=== PATIENT | female | born 1995 | race Caucasian/White ===

== ENCOUNTER 2018-11-20 08:20 | Emergency (ER) | payer SELFPAY ==
[2018-11-20] MEDS ORDERED: CEFTRIAXONE INJ 250 MG VIAL IM ONE (09:59)
[2018-11-20] MEDS ORDERED: AZITHROMYCIN 250 MG TABLET PO ONE (09:59)
[2018-11-20] MEDS ORDERED: LIDOCAINE 1% INJ-PF (10 MG/ML) 30 ML SDV INJ ONE (09:59)
[2018-11-20 10:03] LABS: APPEARANCE,URINE SLIGHTLY-CLOUDY; BILIRUBIN,URINE NEGATIVE (NEGATIVE); COLOR,URINE YELLOW; GLUCOSE, URINE NEGATIVE (NEGATIVE); KETONES,URINE NEGATIVE (NEGATIVE); LEUKOCYTE ESTERASE,URINE LARGE (NEGATIVE); NITRITE,URINE NEGATIVE (NEGATIVE); PROTEIN,URINE NEGATIVE (NEGATIVE); UROBILINOGEN,URINE NEGATIVE mg/dL (<2.0)
--- NOTE | 2018-11-20 10:03 | ER Document Report ---
HPI - HPI Time Seen by Provider: 11/20/18 09:45 Pain Level: 3 Notes: Patient is a 23-year-old female with no significant past medical history who presents complaining of intermittent spotting and bilateral pelvic pain that is been present for the last 1.5 weeks after her menstrual cycle began 2-2.5 weeks ago. Patient states that this is not normal for her. Patient states that most her pain is associated to cramping. Patient denies being . Denies drug allergies. She is able to eat and drink without difficulty. She is urinating normally and having normal bowel movements. Denies any headache, fever, URI, sore throat, chest pain, palpitations, syncope, cough, shortness of breath, wheeze, dyspnea, nausea/vomiting/diarrhea, urinary retention, dysuria, hematuria, or rash. - ROS Systems Reviewed and Negative: Yes All other systems reviewed and negative - REPRODUCTIVE Reproductive: DENIES: : Past Medical History - Social History Smoking Status: Unknown if Ever Smoked Family History: Reviewed & Not Pertinent Vertical Provider Document - CONSTITUTIONAL Agree With Documented VS: Yes Notes: PHYSICAL EXAMINATION: GENERAL: Well-appearing, well-nourished and in no acute distress. LUNGS: Breath sounds clear to auscultation bilaterally and equal. No wheezes rales or rhonchi. HEART: Regular rate and rhythm without murmurs ABDOMEN: Soft, nondistended abdomen. No guarding, no rebound. Normal bowel sounds present. CVA tenderness negative bilaterally. + mild lower b/l pelvic tenderness. [place] neg. No tenderness at [place]. Female (accompanied by female ayesha sharp): No inguinal adenopathy. External genitalia without erythema, lesions, or masses. Vaginal mucosa pink. Cervix parous, pink, and with scant white discharge. No blood noted. Uterus is smooth. No adnexal tenderness. No CMT. Musculoskeletal: FROM to passive/active. Strength 5+/5. Extremities: No cyanosis/clubbing/edema b/l. Peripheral pulses 2+. Capillary refill less than 3 seconds. NEUROLOGICAL: Normal speech, normal gait. PSYCH: Normal mood, normal affect. SKIN: Warm, Dry, normal turgor, no rashes or lesions noted. Course - Re-evaluation Re-evalutation: 11/20/18 12:08 Patient is an afebrile, well-hydrated, 23-year-old female who presents to the ED with chlamydia and ovarian cyst. Vitals are acceptable without any significant tachycardia, tachypnea, or hypoxia. PE is otherwise unremarkable. She has no cervical motion tenderness on exam, but I will send her with doxy as precaution due to the pelvic pain otherwise, however. See wet mount results. Patient did receive Zithromax and Rocephin. Patient is nontoxic-appearing is tolerating p.o. without any difficulties. See TVUS. No other labs or imaging warranted at this time based on H&P. Low suspicion/risk for acute appendicitis, bowel obstruction, acute cholecystitis, acute cholangitis, perforated diverticulitis, incarcerated hernia, pancreatitis, perforated ulcer, peritonitis, sepsis, ectopic , tubo-ovarian abscess, ovarian torsion, or other systemic emergent condition at this time. Patient is aware that her condition can change from initial presentation and she needs to monitor symptoms closely and seek medical attention if any acute changes. Conservative measures otherwise for symptoms. Recheck with your PCM/OBGYN in 3-5 days. Return to the ED with any worsening/concerning symptoms otherwise as reviewed in discharge. Patient is in agreement. - Vital Signs Vital signs: Temp Pulse Resp BP Pulse Ox 98.7 F 60 16 141/82 H 100 11/20/18 08:25 11/20/18 08:25 11/20/18 08:25 11/20/18 08:25 11/20/18 08:25 Procedures - Pelvic Exam Pelvic exam Time completed: 10:10 Cultures obtained: Yes Wet prep obtained: Yes Bimanual exam performed: Yes - negative Witnessed by: Ayesha Discharge - Discharge Clinical Impression: Pelvic pain, Chlamydia Condition: Stable Disposition: HOME, SELF-CARE Instructions: Doxycycline ([facility]) Additional Instructions: Maintain fluid intake Proper hygienic technique Keep the skin clean Sunlight precautions on doxycycline Safe sexual practices with condoms everytime Tylenol/ibuprofen as needed Check in with the health department this week for further testing F/u with your PCM/OBGYN in 3-5 days for a recheck Return to the ED with any development of WRIGHT/fever, trouble with vision, eye redness, worsening pain, urethral discharge, urinary retention, blood in the urine, flank pain, abdominal pain, n/v, Chest Pain, shortness of breath, joint pains, trouble breathing, or any other worsening/concerning symptoms as needed otherwise. Prescriptions: Doxycycline Hyclate 100 mg PO BID #20 capsule Forms: Elevated Blood Pressure Referrals: [facility] [Provider Group] - Follow up as needed [facility] [NO LOCAL MD] - Follow up in 3-5 days
[2018-11-20 10:30] LABS: BACTERIA (WET MOUNT) 4+ BACTERIA SEEN; RBCS (WET MOUNT) FEW RBCS SEEN; T.VAGINALIS (WET MOUNT) NO TRICHOMONAS SEEN; WBCS (WET MOUNT) 4+ WBCS SEEN; YEAST (WET MOUNT) NO YEAST SEEN
[2018-11-20 11:57] LABS: CHLAM PCR DETECTED (NOT DETECT)
--- NOTE | 2018-11-20 12:04 | RADIOLOGY REPORT (SQ) ---
EXAM DESCRIPTION: U/S NON OB PEL TV W/DOPPLER COMPLETED DATE/TIME: 11/20/2018 11:52 am REASON FOR STUDY: pelvic pain COMPARISON: None. TECHNIQUE: Dynamic and static grayscale images acquired of the pelvis via transvaginal approach and recorded on PACS. Additional selected color Doppler and spectral images recorded. LIMITATIONS: None. FINDINGS: UTERUS: Contour normal. No mass. ENDOMETRIAL STRIPE: No focal or generalized thickening. No masses. CERVIX: No nabothian cysts. RIGHT OVARY AND DOPPLER: Normal size. No worrisome masses. Simple appearing 1.7 cm dominant follicle or cyst. Normal arterial vascular flow without evidence for torsion. LEFT OVARY AND DOPPLER: Normal size. No worrisome masses. Normal arterial vascular flow without evide nce for torsion. FREE FLUID: Trace cul-de-sac fluid. OTHER: No other significant finding. MEASUREMENTS: UTERUS: 7.7 x 3.4 x 4.2 cm ENDOMETRIAL STRIPE: 1.3 mm RIGHT OVARY: 4.3 x 2.6 x 3.0 cm LEFT OVARY: 3.7 x 2.3 x 2.1 cm IMPRESSION: 1. Incidental small right ovarian cyst without suspicious features. 2. No torsion. 3. Normal uterus. 4. Trace free fluid in the cul-de-sac, possibly physiologic. TECHNICAL DOCUMENTATION: JOB ID: [id number] [employer]- All Rights Reserved Rev-07/24 Reading location - IP/workstation name: [email or web address]
[2018-11-20 12:23] VITALS: BP 129/74
== END 2018-11-20 12:23 | disposition home or self-care (01) ==
LOC: ER 08:20
DX: A74.9 Chlamydial infection, unspecified (principal); N83.201 Unspecified ovarian cyst, right side; R10.2 Pelvic and perineal pain
CPT/HCPCS: 99284; 96374; 96375; 87210; 81025; 81001; 87491; 87591; 76830; 93976; J3490; J0696

== ENCOUNTER 2020-01-21 11:21 | Emergency (ER) | payer MEDICAID, OTHER ==
--- NOTE | 2020-01-21 12:13 | ER Document Report ---
ED Medical Screen (RME) - General Stated Complaint: LEG PAIN Time Seen by Provider: 01/21/20 12:09 Mode of Arrival: Ambulatory Information source: Patient Notes: HPI; 24-year-old female presents to the emergency room complaining of left calf pain for the past 3 days. Describes it as a cramping sensation. States she woke up with the pain to her calf 3 days ago. Has been taking ibuprofen and Tylenol without relief. She denies any recent travel. No recent surgery. No history of PE or DVTs. Currently using Mirena for control. PE: Alert and oriented x3. Lungs: Clear to auscultation without rales, rhonchi, wheezes. Heart: Regular rate rhythm without murmurs, rubs, gallops. There is tenderness to the left proximal calf. No significant swelling is noted. Positive Homans. I have greeted and performed a rapid initial assessment of this patient. A comprehensive ED assessment and evaluation of the patient, analysis of test results and completion of the medical decision making process will be conducted by additional ED providers. I have specifically instructed the patient or family members with the patient to immediately return to any nursing staff should anything change in the patient's condition or with their chief complaint. TRAVEL OUTSIDE OF THE [place] IN LAST 30 DAYS: No - Related Data Allergies/Adverse Reactions: No Known Allergies Allergy (Verified 11/20/18 08:23) Past Medical History Renal/ Medical History: Denies: Hx Peritoneal Dialysis Physical Exam - Vital signs Vitals: Temp Pulse Resp BP Pulse Ox 98.8 F 60 16 133/74 H 98 01/21/20 12:05 01/21/20 12:05 01/21/20 12:05 01/21/20 12:05 01/21/20 12:05 Course - Vital Signs Vital signs: Temp Pulse Resp BP Pulse Ox 98.8 F 60 16 133/74 H 98 01/21/20 12:05 01/21/20 12:05 01/21/20 12:05 01/21/20 12:05 01/21/20 12:05
[2020-01-21 13:05] LABS: ABSOLUTE BASOPHILS # (AUTO) 0.1 10^3/uL (0.0-0.2); ABSOLUTE EOSINOPHILS # (AUTO) 0.1 10^3/uL (0.0-0.6); ABSOLUTE LYMPHOCYTES (AUTO) 2.5 10^3/uL (0.5-4.7); ABSOLUTE MONOCYTES (AUTO) 0.5 10^3/uL (0.1-1.4); ABSOLUTE NEUT (AUTO) 4.7 10^3/uL (1.7-8.2); BASOPHILS % (AUTO) 0.8 % (0-2); EOSINOPHILS % (AUTO) 1.6 % (0-6); HEMOGLOBIN 13.4 g/dL (12.0-15.5); LYMPHOCYTES % (AUTO) 31.4 % (13-45); MEAN CORPUSCULAR HEMOGLOBIN 28.9 pg (27.0-33.4); MEAN CORPUSCULAR HGB CONC 33.5 g/dL (32.0-36.0); MEAN CORPUSCULAR VOLUME 86 fl (80-97); MONOCYTES % (AUTO) 6.8 % (3-13); PLATELET COUNT 285 10^3/uL (150-450); RED BLOOD COUNT 4.63 10^6/uL (3.72-5.28); RED CELL DISTRIBUTION WIDTH 16.1 % (11.5-14.0); SEGMENTED NEUTROPHILS % (AUTO) 59.4 % (42-78); TOTAL CELLS COUNTED % (AUTO) 100 %; WHITE BLOOD COUNT 7.9 10^3/uL (4.0-10.5)
[2020-01-21 13:09] LABS: INTERNATIONAL RATION (INR) 0.93; PROTHROMBIN TIME 12.7 SEC (11.4-15.4)
[2020-01-21 13:19] LABS: ALBUMIN 4.4 g/dL (3.5-5.0); ALKALINE PHOSPHATASE 160 U/L (38-126); ANION GAP 9 (5-19); ASPARTATE AMINO TRANSFERASE 26 U/L (14-36); BILIRUBIN,TOTAL 0.4 mg/dL (0.2-1.3); BLOOD UREA NITROGEN 13 mg/dL (7-20); CALCIUM 9.5 mg/dL (8.4-10.2); CARBON DIOXIDE 26 mmol/L (22-30); CHLORIDE 106 mmol/L (98-107); GLUCOSE 82 mg/dL (75-110); POTASSIUM 4.1 mmol/L (3.6-5.0); TOTAL PROTEIN 7.5 g/dL (6.3-8.2)
--- NOTE | 2020-01-21 14:41 | ER Document Report ---
ED Extremity Problem, Lower - General Chief Complaint: Leg Pain Stated Complaint: LEG PAIN Time Seen by Provider: 01/21/20 12:09 Primary Care Provider: EVERT COMBS MD [COMMUNITY BASED STAFF] - Follow up as needed Mode of Arrival: Ambulatory Information source: Patient Notes: Patient is a 24-year-old female comes emergency room with a complaint of left calf pain. Patient states that started approximately 3 days ago when she woke up in the morning. She denies any known traumatic events. She does not smoke. She is currently using the Mirena for control. But she does state that she is status 2 months and is still breast-feeding. Patient states that it hurts when she walks in the back of her left leg. She had a history of hypertension during . She denies any long trips. TRAVEL OUTSIDE OF THE [place] IN LAST 30 DAYS: No - HPI Patient complains to provider of: Pain. No: Injury, Swelling Location: Leg Occurred: Other - 3 days Where: Home Onset/Duration: Sudden Quality of pain: Achy, Sharp Pain Level: 3 Recent injury: No Associated symptoms: denies: Chest pain, Short of breath, Unable to bear weight Exacerbated by: Movement, Walking Relieved by: Elevation - Related Data Allergies/Adverse Reactions: No Known Allergies Allergy (Verified 01/21/20 12:54) Past Medical History - General Information source: Patient - Social History Smoking Status: Former Smoker Cigarette use (# per day): No Chew tobacco use (# tins/day): No Smoking Education Provided: No Frequency of alcohol use: None Drug Abuse: None Lives with: Family Family History: Reviewed & Not Pertinent Renal/ Medical History: Denies: Hx Peritoneal Dialysis Review of Systems - Review of Systems Constitutional: No symptoms reported EENT: No symptoms reported Cardiovascular: No symptoms reported Respiratory: No symptoms reported Gastrointestinal: No symptoms reported Genitourinary: No symptoms reported Female Genitourinary: No symptoms reported Musculoskeletal: See HPI, Muscle pain. denies: Leg swelling, Ankle swelling Skin: No symptoms reported Hematologic/Lymphatic: No symptoms reported Neurological/Psychological: No symptoms reported -: Yes All other systems reviewed and negative Physical Exam - Vital signs Vitals: Temp Pulse Resp BP Pulse Ox 98.8 F 60 16 133/74 H 98 01/21/20 12:05 01/21/20 12:05 01/21/20 12:05 01/21/20 12:05 01/21/20 12:05 Interpretation: Hypertensive - Notes Notes: PHYSICAL EXAMINATION: GENERAL: Well-appearing, well-nourished and in no acute distress. HEAD: Atraumatic, normocephalic. EYES: Pupils equal round and reactive to light, extraocular movements intact, conjunctiva are normal. LUNGS: Breath sounds clear to auscultation bilaterally and equal. No wheezes rales or rhonchi. HEART: Regular rate and rhythm without murmurs ABDOMEN: Soft, nontender, nondistended abdomen. No guarding, no rebound. No masses appreciated. Female : deferred Musculoskeletal: Examination patient's her concern is her left lower extremity posterior calf area. In a supine position patient does display some mild Homans' sign. Palpation of the gastrocnemius area also shows a tender spot mid gastroc. There is no discolorations or bruising noted minimal swelling if any. NEUROLOGICAL: Normal speech, normal gait. Normal sensory, motor exams PSYCH: Normal mood, normal affect. SKIN: Warm, Dry, normal turgor, no rashes or lesions noted. Course - Re-evaluation Re-evalutation: 01/21/20 15:42 Patient's lab came back normal and her ultrasound report verbally by the tech also was negative. Given patient has no other history besides recent feel comfortable enough to send patient home without any further work-up. She will do some light stretching using moist heat on the back for a strained gastroc muscle. Also informed her to take some ibuprofen in case is a little bit of a superficial thrombophlebitis. - Vital Signs Vital signs: Temp Pulse Resp BP Pulse Ox 98.1 F 57 L 18 126/87 H 100 01/21/20 16:05 01/21/20 16:05 01/21/20 16:05 01/21/20 16:05 01/21/20 16:05 - Laboratory Result Diagrams: 01/21/20 12:38 01/21/20 12:38 Laboratory results interpreted by me: 01/21/20 01/21/20 12:38 12:38 RDW 16.1 H Alkaline Phosphatase 160 H Discharge - Discharge Clinical Impression: Gastrocnemius strain, left Qualifiers: Encounter type: initial encounter Qualified Code(s): S86.112A - Strain of other muscle(s) and tendon(s) of posterior muscle group at lower leg level, left leg, initial encounter Condition: Stable Disposition: HOME, SELF-CARE Instructions: Muscle Strain ([facility]), Superficial Phlebitis ([facility]) Additional Instructions: As we discussed your ultrasound was negative for a blood clot. As we also t alked you can start stretching that muscle out by a stepping on a step and dropping your heel stretch out the calf area. Also moist heat will also help and anti-inflammatories like ibuprofen or Motrin. Highly recommend that you follow-up with your primary care provider in the next 2 to 3 days for reevaluation and continuation of care. Referrals: EVERT COMBS MD [COMMUNITY BASED STAFF] - Follow up as needed
--- NOTE | 2020-01-21 15:30 | RADIOLOGY REPORT (SQ) ---
EXAM DESCRIPTION: VENOUS UNILATERAL LOWER IMAGES COMPLETED DATE/TIME: 01/21/2020 1:53 pm REASON FOR STUDY: left calf pain COMPARISON: None. TECHNIQUE: Dynamic and static weiner scale and color images acquired of the left leg venous system. Se lected spectral images acquired with additional compression and augmentation maneuvers. The contralat eral common femoral vein and saphenofemoral junction were also imaged. Images stored on PACS. LIMITATIONS: None. FINDINGS: COMMON FEMORAL: Normal phasicity, compression and augmentation. No visualized echogenic ma terial on weiner scale. No defects on color images. FEMORAL: Normal compression and augmentation. No visualized echogenic material on weiner scale. No defe cts on color images. POPLITEAL: Normal compression, augmentation. No visualized echogenic material on weiner scale. No defec ts on color images. CALF VESSELS: Normal compression, augmentation. No visualized echogenic material on weiner scale. No de fects on color images. GSV and SSV: Normal compression, augmentation. No visualized echogenic material on weiner scale. No def ects on color images. ANY DEEP VENOUS INSUFFICIENCY: Not evaluated. ANY EVIDENCE OF POPLITEAL CYST: No. OTHER: No other significant finding. CONTRALATERAL COMMON FEMORAL VEIN AND SAPHENOFEMORAL JUNCTION: Normal phasicity, compression and augmentation. No visualized echogenic material on weiner scale. No de fects on color images. IMPRESSION: NO EVIDENCE OF DVT OR SVT IN THE LEFT LEG. TECHNICAL DOCUMENTATION: JOB ID: [id number] [employer]- All Rights Reserved Reading location - IP/workstation name: [email or web address]
[2020-01-21 16:05] VITALS: BP 126/87
== END 2020-01-21 16:05 | disposition home or self-care (01) ==
LOC: ER 11:21
DX: S86.112A Strain of other muscle(s) and tendon(s) of posterior muscle group at lower leg level, left leg, initial encounter (principal); M79.605 Pain in left leg; M79.10 Myalgia, unspecified site; X58.XXXA Exposure to other specified factors, initial encounter; Z79.899 Other long term (current) drug therapy; I10 Essential (primary) hypertension; Z87.891 Personal history of nicotine dependence
CPT/HCPCS: 36415; 80053; 85025; 85610; 93971; 99284